=== PATIENT | male | born 1975 | race African-American/Black ===

== ENCOUNTER → 2016-10-24 | Outpatient (CLI) | payer OTHER | LOC: C.LAB 02:50 | DX: Z02.83 Encounter for blood-alcohol and blood-drug test (principal) ==

== ENCOUNTER → 2017-11-29 | Outpatient (CLI) | payer OTHER | END | disposition home or self-care (01) | LOC: C.PATHSPEC 17:33 | PROVIDERS: ATTEND Urology | DX: Z30.2 Encounter for sterilization (principal) ==